=== PATIENT | male | born 1960 | race Caucasian/White ===

== ENCOUNTER 2019-07-05 16:57 | Emergency (ER) | payer MEDICAID, OTHER, SELFPAY ==
[~2019-07-05] VITALS: Ht 172.7 cm; Wt 90.0 kg
[2019-07-05 17:01] VITALS: BP 146/80
--- NOTE | 2019-07-05 17:13 | NUR ---
PT AMBULATORY TO ROOM, NO SIGNS OF ACCUTE DISTRESS. WILL MONITOR AND WATCH FOR ORDERS.
[2019-07-05] MEDS ORDERED: LIDOCAINE-MPF 1%, 5ML ONE ×2 (17:15→17:41)
--- NOTE | 2019-07-05 17:25 | NUR ---
TASK RN NOTE: SUPPLIES AT BEDSIDE FOR ERMD. PT HAS HAND ELEVATED. NAD NOTED AT THIS TIME. RESPIRATIONS EVEN AND UNLABORED ON RA, TALKING WITH PARTNER WHO IS AT THE BEDSIDE.
[2019-07-05] MEDS ORDERED: LIDOCAINE 1%, 10ML INFIL ONE (18:00)
--- NOTE | 2019-07-05 18:00 | NUR ---
ERP TO BEDSIDE TO NUMB PT.
--- NOTE | 2019-07-05 18:15 | NUR ---
ERP TO BEDSIDE TO REMOVE SPLINTER. PT TOLERATED WELL.
== END 2019-07-05 19:04 | disposition home or self-care (01) ==
LOC: ED 18:14
DX: S61.041A Puncture wound with foreign body of right thumb without damage to nail, initial encounter (principal); X58.XXXA Exposure to other specified factors, initial encounter; Y93.89 Activity, other specified; Y92.098 Other place in other non-institutional residence as the place of occurrence of the external cause; Y99.8 Other external cause status
CPT/HCPCS: 10120; 12041; 99284; 99285